=== PATIENT | female | born 1980 | race Caucasian/White ===

== ENCOUNTER → 2016-09-21 | Outpatient (CLI) | payer OTHER ==
[~2016-09-21] MED LIST: AMBIEN10 M1 PO; ATARAX25 MG PO; AUGMENTIN XR 101 TE1 PO; CATAFLAM50 MG PO; CYCLOBENZAPRINE5 M3 PO; FLEXERIL5 MG PO; HYDROCODONE BIT1 T11; HYDROCODONE BIT1 T11 PO; IBU800 M1 PO; LEVAQUIN750 MG PO; LISINOPRIL10 MG PO; MOTRIN800 MG PO; Motrin,Rufen800 MG PO; NAPROSYN500 MG PO; PERCOCET 325 MG1 TA2 PO; PREDNICOT20 MG PO; PRILOSEC20 M1 PO; PROAIR HFA0.09 MG/AC IH; SINGULAIR10 MG PO; TRAMADOL HCL50 MG PO; TYLENOL W/CODEI1 TA2 PO; VALIUM10 MG PO; VICODIN 5/500 505 MG PO; ZOFRAN ODT4 MG SL; ZYRTEC10 M1 PO
[2016-09-21 11:55] LABS: BASO % 0.2 % (0.0-1.0); EOS % 0.2 % (1.0-4.0); HEMATOCRIT 39.8 % (37.0-47.0); LYMPH # 2.8 10*3/uL (1.3-4.4); LYMPH % 33.3 % (27.0-41.0); MEAN CELL VOLUME 88.4 fl (81.0-99.0); MEAN CORPUSCULAR HGB 28.9 pg (27.0-31.0); MEAN CORPUSCULAR HGB CONC 32.7 g/dl (33.0-37.0); MEAN PLATELET VOLUME 11.3 fl (9.6-12.3); MONO # 0.5 10*3/uL (0.1-1.0); MONO % 5.9 % (3.0-9.0); NEUT # 5.1 10*3/uL (2.3-7.9); NEUT % 60.2 % (47.0-73.0); PLATELET COUNT AUTOMATED 214 10*3/uL (130-400); RED CELL DISTRI WIDTH 13.2 % (0-14.5); WHITE BLOOD COUNT 8.5 10*3/uL (4.8-10.8)
[2016-09-21 12:29] LABS: ALBUMIN 3.2 gm/dl (3.1-4.5); ALKALINE PHOSPHATASE 55 U/L (45-117); BILIRUBIN, TOTAL 0.8 mg/dl (0.2-1.0); BUN 19 mg/dl (7-24); CARBON DIOXIDE 25 mmol/L (21-32); CHLORIDE 108 mmol/L (98-107); CHOLESTEROL 164 mg/dL (<200); EST GLOM FILT AFRICAN AMERICAN > 60 ml/min; GLUCOSE 92 mg/dL (65-99); HDL CHOLESTEROL 75 mg/dl (40-60); LDL CHOLESTEROL 72 mg/dL (9-159); POTASSIUM 4.1 mmol/L (3.5-5.1); SGOT/AST 12 IU/L (3-35); SGPT/ALT 18 U/L (12-78); SODIUM 140 mmol/L (136-145); TOTAL PROTEIN 6.8 gm/dL (6.4-8.2); TRIGLYCERIDES 85 mg/dl (<150); VLDL CHOLESTEROL 17 mg/dL (6-40)
== END | disposition home or self-care (01) ==
LOC: LAB 11:33
PROVIDERS: Internal Medicine
DX: I10 Essential (primary) hypertension (principal)

== ENCOUNTER → 2017-03-23 | Outpatient (CLI) | payer OTHER | END | disposition home or self-care (01) | LOC: US 13:07 | DX: N93.9 Abnormal uterine and vaginal bleeding, unspecified (principal); N88.8 Other specified noninflammatory disorders of cervix uteri ==

== ENCOUNTER → 2017-07-13 | Outpatient (CLI) | payer OTHER ==
[2017-07-13 17:45] LABS: BASO # 0.1 10*3/uL (0.0-0.1); BASO % 0.3 % (0.0-1.0); EOS # 0.2 10*3/uL (0.0-0.4); EOS % 1.1 % (1.0-4.0); HEMATOCRIT 38.5 % (37.0-47.0); HEMOGLOBIN 12.5 g/dl (12.0-16.0); LYMPH # 4.1 10*3/uL (1.3-4.4); LYMPH % 25.9 % (27.0-41.0); MEAN CELL VOLUME 85.9 fl (81.0-99.0); MEAN CORPUSCULAR HGB 27.9 pg (27.0-31.0); MEAN CORPUSCULAR HGB CONC 32.5 g/dl (33.0-37.0); MEAN PLATELET VOLUME 10.2 fl (9.6-12.3); MONO % 6.5 % (3.0-9.0); NEUT # 10.2 10*3/uL (2.3-7.9); NEUT % 65.1 % (47.0-73.0); PLATELET COUNT AUTOMATED 298 10*3/uL (130-400); RED BLOOD COUNT 4.48 10*6/uL (4.10-5.10); RED CELL DISTRI WIDTH 12.5 % (0-14.5); WHITE BLOOD COUNT 15.7 10*3/uL (4.8-10.8)
[2017-07-13 18:15] LABS: ALBUMIN 3.7 gm/dl (3.1-4.5); ALKALINE PHOSPHATASE 65 U/L (45-117); BUN 21 mg/dl (7-24); CHLORIDE 103 mmol/L (98-107); CHOLESTEROL 186 mg/dL (<200); CREATININE 0.87 mg/dL (0.55-1.02); HDL CHOLESTEROL 69 mg/dl (40-60); LDL CHOLESTEROL 96 mg/dL (9-159); POTASSIUM 3.4 mmol/L (3.5-5.1); SGOT/AST 16 IU/L (3-35); SGPT/ALT 22 U/L (12-78); SODIUM 139 mmol/L (136-145); TOTAL PROTEIN 7.3 gm/dL (6.4-8.2); TRIGLYCERIDES 104 mg/dl (<150); VLDL CHOLESTEROL 21 mg/dL (6-40)
== END | disposition home or self-care (01) ==
LOC: LAB 17:26
PROVIDERS: Internal Medicine
DX: I10 Essential (primary) hypertension (principal); E66.09 Other obesity due to excess calories

== ENCOUNTER 2018-09-05 | Emergency (ER) | payer OTHER ==
[2018-09-05] MEDS ORDERED: PROPRANOLOL ER80 MG PO (13:25)
[2018-09-05] MEDS ORDERED: QUETIAPINE FUMA25 MG PO (13:26)
[2018-09-05] MEDS ORDERED: TOPIRAMATE50 M2 PO (13:26)
[2018-09-05] MEDS ORDERED: TESSALON PERLE100 M1 PO (15:59)
[2018-09-05] MEDS ORDERED: PREDNISONE50 MG PO (15:59)
[2018-09-05] MEDS ORDERED: ZITHROMAX250 MG PO (15:59)
== END 2018-09-05 16:10 | disposition home or self-care (01) ==
DX: J20.9 Acute bronchitis, unspecified (principal); H92.03 Otalgia, bilateral; F17.200 Nicotine dependence, unspecified, uncomplicated; Z79.899 Other long term (current) drug therapy

== ENCOUNTER → 2020-08-07 | Outpatient (CLI) | payer OTHER ==
[~2020-08-07] MED LIST changes: +PREDNISONE50 MG PO; +PROPRANOLOL ER80 MG PO; +QUETIAPINE FUMA25 MG PO; +TESSALON PERLE100 M1 PO; +TOPIRAMATE50 M2 PO; +ZITHROMAX250 MG PO
== END ==
LOC: COVID19 12:16
PROVIDERS: ATTEND Internal Medicine
DX: U07.1 COVID-19 (principal)

== ENCOUNTER → 2021-08-25 | Outpatient (CLI) | payer OTHER | END | disposition home or self-care (01) | LOC: RAD 16:07 | PROVIDERS: ATTEND Nurse Practitioner Family | DX: R05.9 Cough, unspecified (principal); R06.02 Shortness of breath; R09.81 Nasal congestion; Z86.16 Personal history of COVID-19 ==

== ENCOUNTER → 2021-09-16 | Outpatient (CLI) | payer OTHER | END | disposition home or self-care (01) | LOC: CARD 01:09 | PROVIDERS: ATTEND Nurse Practitioner Family | DX: I51.7 Cardiomegaly (principal) ==

== ENCOUNTER 2022-04-06 11:12 | Emergency (ER) | payer OTHER ==
[~2022-04-06] VITALS: Ht 162.5 cm; Wt 138.3 kg
== END 2022-04-06 13:26 | disposition home or self-care (01) ==
LOC: ED 11:12
DX: S93.491A Sprain of other ligament of right ankle, initial encounter (principal); S93.691A Other sprain of right foot, initial encounter; Z79.899 Other long term (current) drug therapy; W17.2XXA Fall into hole, initial encounter; Y93.01 Activity, walking, marching and hiking; Y92.481 Parking lot as the place of occurrence of the external cause; Y99.9 Unspecified external cause status

== ENCOUNTER → 2022-07-21 | Outpatient (CLI) | payer OTHER | END | disposition home or self-care (01) | LOC: ORTHO | PROVIDERS: ATTEND Orthopaedic Surgery | DX: M25.561 Pain in right knee (principal) ==

== ENCOUNTER → 2022-08-28 | Outpatient (CLI) | payer OTHER | END | disposition home or self-care (01) | LOC: NM 08-07 01:02 | PROVIDERS: ATTEND Orthopaedic Surgery | DX: M84.361A Stress fracture, right tibia, initial encounter for fracture (principal) ==

== ENCOUNTER 2024-06-19 11:24 | Emergency (ER) | payer OTHER ==
[~2024-06-19] VITALS: Ht 162.5 cm; Wt 158.8 kg
[2024-06-19] MEDS ORDERED: FUROSEMIDE40 MG PO (11:46)
[2024-06-19] MEDS ORDERED: ALBUTEROL SULF HFA 1 (11:46)
[2024-06-19] MEDS ORDERED: CITALOPRAM10 MG PO (11:46)
[2024-06-19] MEDS ORDERED: OMEPRAZOLE MAGN20 MG PO (11:47)
[2024-06-19] MEDS ORDERED: LISINOPRIL10 M1 PO (11:47)
[2024-06-19] MEDS ORDERED: Magnesium Oxid400 MG PO (11:49)
[2024-06-19] MEDS ORDERED: TRAZODONE50 MG PO (11:50)
[2024-06-19] MEDS ORDERED: POTASSIUM CHLO20 ME4 PO (11:50)
[2024-06-19] MEDS ORDERED: Albuterol Sulfate 2.5 MG/3 ML VIAL NEB ONE (11:55)
[2024-06-19] MEDS ORDERED: methylPREDNISolone sod succ 125 MG VIAL IV ONE (11:55)
[2024-06-19 12:18] LABS: BASO % 0.4 % (0.0-1.0); EOS # 0.1 10*3/uL (0.0-0.4); EOS % 1.3 % (1.0-4.0); HEMATOCRIT 38.8 % (37.0-47.0); LYMPH # 1.7 10*3/uL (1.3-4.4); LYMPH % 24.3 % (27.0-41.0); MEAN CELL VOLUME 84.3 fl (81.0-99.0); MEAN CORPUSCULAR HGB 25.7 pg (27.0-31.0); MEAN CORPUSCULAR HGB CONC 30.4 g/dl (33.0-37.0); MEAN PLATELET VOLUME 9.7 fl (9.6-12.3); MONO # 0.6 10*3/uL (0.1-1.0); MONO % 8.1 % (3.0-9.0); NEUT # 4.6 10*3/uL (2.3-7.9); NEUT % 65.2 % (47.0-73.0); PLATELET COUNT AUTOMATED 201 10*3/uL (130-400); RED CELL DISTRI WIDTH 15.4 % (0-14.5); WHITE BLOOD COUNT 7.1 10*3/uL (4.8-10.8)
[2024-06-19 12:34] LABS: ALKALINE PHOSPHATASE 81 U/L (46-116); BUN 9 mg/dl (9-23); CHLORIDE 105 mmol/L (98-107); POTASSIUM 3.6 mmol/L (3.4-5.1); SGPT/ALT 89 U/L (5-49); TOTAL PROTEIN 6.4 gm/dL (6.0-8.0)
[2024-06-19] MEDS ORDERED: ALBUTEROL2.5 MG/0.5 INH (13:07)
[2024-06-19] MEDS ORDERED: COMPACT ULTRAS1 EACH MC (13:07)
[2024-06-19] MEDS ORDERED: PREDNISONE50 MG PO (14:00)
== END 2024-06-19 14:10 | disposition left against medical advice (07) ==
LOC: ED 11:24
PROVIDERS: Nurse Practitioner
DX: J44.1 Chronic obstructive pulmonary disease with (acute) exacerbation (principal); Z20.822 Contact with and (suspected) exposure to COVID-19; K21.9 Gastro-esophageal reflux disease without esophagitis; R91.8 Other nonspecific abnormal finding of lung field; Z90.89 Acquired absence of other organs; Z98.890 Other specified postprocedural states; Z53.29 Procedure and treatment not carried out because of patient's decision for other reasons

== ENCOUNTER 2025-07-15 18:42 | Emergency (ER) | payer OTHER ==
[~2025-07-15] VITALS: Ht 162.5 cm; Wt 149.7 kg
[~2025-07-15 18:42] MED LIST changes: +ALBUTEROL SULF HFA 1; +ALBUTEROL2.5 MG/0.5 INH; +CITALOPRAM10 MG PO; +COMPACT ULTRAS1 EACH MC; +FUROSEMIDE40 MG PO; +LISINOPRIL10 M1 PO; +Magnesium Oxid400 MG PO; +OMEPRAZOLE MAGN20 MG PO; +POTASSIUM CHLO20 ME4 PO; +PREDNISONE10 MG PO; +SEROQUEL50 MG PO; +TRAZODONE50 MG PO
[2025-07-15] MEDS ORDERED: ZITHROMAX250 MG PO (19:53)
[2025-07-15] MEDS ORDERED: PREDNISONE20 M1 PO (19:53)
[2025-07-15] MEDS ORDERED: Ondansetron4 MG PO (19:53)
== END 2025-07-15 19:58 | disposition home or self-care (01) ==
LOC: ED 18:42
DX: B34.9 Viral infection, unspecified (principal); J44.89 Other specified chronic obstructive pulmonary disease; K21.9 Gastro-esophageal reflux disease without esophagitis; Z90.89 Acquired absence of other organs; Z98.890 Other specified postprocedural states